=== PATIENT | male | born 1950 | race Caucasian/White ===

== ENCOUNTER 2024-04-09 14:36 | Emergency (ER) | payer MEDICARE ==
[2024-04-09 15:22] VITALS: RESP 16
[2024-04-09 17:08] LABS: RBC,Urine >182 /hpf (0-5); WBC,Urine >182 /hpf (0-5)
[2024-04-09 17:09] LABS: Appearance,Urine Bloody (Clear)
--- NOTE | 2024-04-09 17:24 | ED ---
Male Urogenital HPI - General Chief complaint: Urogenital Stated complaint: Hematuria Time Seen by Provider: 04/09/24 14:38 Source: patient, EMS Mode of arrival: EMS - History of Present Illness Initial comments: 73-year-old male presents to the emergency department from [facility] home. They report that the patient has a catheter which was replaced yesterday. The patient takes Brilinta. Today the patient began having bright red blood in his Chen bag and therefore he was sent to the hospital for evaluation. There was no reported significant trauma when the catheter was placed. Patient does have a neurogenic bladder and therefore catheter has been present for at least several months. Patient cannot provide any history. He denies being on any antibiotics. No fever. Denies any suprapubic pain or bodyaches. HPI is limited because of the patient's low literacy level - Related Data Previous Rx's Medication Instructions Recorded Cephalexin [Keflex] 500 mg PO Q6HR #28 cap 04/09/24 Allergies Allergy/AdvReac Type Severity Reaction Status Date / Time No Known Allergies Allergy Verified 04/09/24 14:42 Review of Systems ROS Statement: Those systems with pertinent positive or pertinent negative responses have been documented in the HPI. ROS Other: All systems not noted in ROS Statement are negative. Past Medical History Past Medical History: Myocardial Infarction ([place]) Past Surgical History: Appendectomy, Heart Catheterization With Stent Past Psychological History: Depression Smoking Status: Former smoker Past Alcohol Use History: Rare General Exam General appearance: alert, in no apparent distress Head exam: Present: atraumatic, normocephalic, normal inspection Eye exam: Present: normal appearance, PERRL, EOMI. Absent: scleral icterus, conjunctival injection, periorbital swelling ENT exam: Present: normal exam, mucous membranes moist Neck exam: Present: normal inspection. Absent: tenderness, meningismus, lymphadenopathy Respiratory exam: Present: normal lung sounds bilaterally. Absent: respiratory distress, wheezes, rales, rhonchi, stridor Cardiovascular Exam: Present: regular rate, normal rhythm, normal heart sounds. Absent: systolic murmur, diastolic murmur, rubs, gallop, clicks GI/Abdominal exam: Present: soft, normal bowel sounds. Absent: distended, tenderness, guarding, rebound, rigid Extremities exam: Present: normal inspection, full ROM, normal capillary refill. Absent: tenderness, pedal edema, joint swelling, calf tenderness Back exam: Present: normal inspection Neurological exam: Present: alert, oriented X3, CN II-XII intact Psychiatric exam: Present: normal affect, normal mood Skin exam: Present: warm, dry, intact, normal color. Absent: rash Course Vital Signs 04/09/24 04/09/24 14:43 18:35 Temperature 97.5 F L 98.0 F Pulse Rate 66 69 Respiratory 16 16 Rate Blood Pressure 114/57 128/44 O2 Sat by Pulse 97 97 Oximetry Medical Decision Making - Medical Decision Making Was pt. sent in by a medical professional or institution (, NAILA, STEAM TABLE ATTENDANT, urgent care, hospital, or prison...) When possible be specific @ -Patient was sent in from his [facility] home Did you speak to anyone other than the patient for history (EMS, parent, family, police, friend...)? What history was obtained from this source @ -Spoke with EMS for history Did you review nursing and triage notes (agree or disagree)? Why? @ -I reviewed and agree with nursing and triage notes Were old charts reviewed (outside hosp., previous admission, EMS record, old EKG, old radiological studies, urgent care reports/EKG's, prison records)? Report findings @ -I reviewed paperwork that came with the patient when he was at [facility] Differential Diagnosis (chest pain, altered mental status, abdominal pain women, abdominal pain men, vaginal bleeding, weakness, fever, dyspnea, syncope, h eadache, dizziness, GI bleed, back pain, seizure, CVA, palpatations, mental health, musculoskeletal)? @ -UTI, bladder cancer, bladder polyp, bladder stones EKG interpreted by me (3pts min.). @ -Not done X-rays interpreted by me (1pt min.). @ -None done CT interpreted by me (1pt min.). @ -None done U/S interpreted by me (1pt. min.). @ -None done What testing was considered but not performed or refused? (CT, X-rays, U/S, labs)? Why? @ -None What meds were considered but not given or refused? Why? @ -None Did you discuss the management of the patient with other professionals (professionals i.e. , NAIAL, STEAM TABLE ATTENDANT, lab, RT, psych nurse, manager social services, wheelabrator operator, teacher, mounted police officer, family independence case manager)? Give summary @ -No Was smoking cessation discussed for >3mins.? @ -No Was critical care preformed (if so, how long)? @ -No Were there social determinants of health that impacted care today? How? (Homelessness, low income, unemployed, alcoholism, drug addiction, transportation, low edu. Level, literacy, decrease access to med. care, snf, rehab)? @Patient resides in an [facility] home Was there de-escalation of care discussed even if they declined (Discuss DNR or withdrawal of care, Hospice)? DNR status @ -No What co-morbidities impacted this encounter? (DM, HTN, Smoking, COPD, CAD, Cancer, CVA, ARF, Chemo, Hep., AIDS, mental health diagnosis, sleep apnea, morbid obesity)? @ -Neurogenic bladder Was patient admitted / discharged? Hospital course, mention meds given and route, prescriptions, significant lab abnormalities, going to OR and other pertinent info. @ -Upon arrival patient seen and evaluated in room 1. Thorough history and physical exam was performed. We did change out the whole catheter. Urine sample is sent which does demonstrate leukocyte esterase and a lot of blood. Patient will be placed on an antibiotic to see if this alleviates his symptoms. We were able to flush the catheter to where there was no concern for any large blood clots. Patient needs to follow-up with the urologist for his catheter and return for any new or worsening symptoms. Patient agreeable to the plan he was discharged in stable condition Undiagnosed new problem with uncertain prognosis? @ -No Drug Therapy requiring intensive monitoring for toxicity (Heparin, Nitro, Insulin, Cardizem)? @ -No Were any procedures done? @ -Chen replacement Diagnosis/symptom? @ -Acute hematuria, acute UTI Acute, or Chronic, or Acute on Chronic? @ -Acute Uncomplicated (without systemic symptoms) or Complicated (systemic symptoms)? @ -Complicated Side effects of treatment? @ -Allergic reaction Exacerbation, Progression, or Severe Exacerbation? @ -No Poses a threat to life or bodily function? How? (Chest pain, [place], [place], pneumonia, PE, COPD, DKA, ARF, appy, cholecystitis, CVA, Diverticulitis, Homicidal, Suicidal, threat to staff... and all critical care pts) @ -No - Lab Data Lab Results 05/29/24 Range/Units 16:43 Urine Appearance Bloody (Clear) Urine RBC >182 H (0-5) /hpf Urine WBC >182 H (0-5) /hpf Urine WBC Clumps Many H (None) /hpf Disposition Clinical Impression: Hematuria, UTI (urinary tract infection) Disposition: HOME SELF-CARE Condition: Stable Instructions (If sedation given, give patient instructions): Urinary Tract Infection in Men (ED) Additional Instructions: Please take the antibiotics as directed. Follow-up with Dr. Cuba and return for any new or worsening symptoms Prescriptions: Cephalexin [Keflex] 500 mg PO Q6HR #28 cap Is patient prescribed a controlled substance at d/c from ED?: No Referrals: BEN CUBA MD [Primary Care Provider] - 1-2 days Elliott Cuba MD [STAFF PHYSICIAN] - 1-2 days Time of Disposition: 17:24
[2024-04-09] MEDS: cefTRIAXone IN SWFI 1,000 MG/10 ML SYRINGE IVP STA (18:17)
[2024-04-09] MEDS: CEPHALEXIN 500 MG CAP PO STA (18:34)
[2024-04-09 18:37] VITALS: BP 128/44; PULSE 69; TEMP 98
== END 2024-04-09 18:54 | disposition home or self-care (01) ==
LOC: EC 14:36
DX: N39.0 Urinary tract infection, site not specified (principal); Z87.891 Personal history of nicotine dependence
CPT/HCPCS: 51702; 81001; 87086; 99284

== ENCOUNTER 2024-06-19 06:42 | Emergency (ER) | payer MEDICARE, OTHER ==
[2024-06-19] MEDS ORDERED: SODIUM CHLORIDE 0.9% 1,000 ML BAG ONE (07:06)
--- NOTE | 2024-07-10 12:53 | CT ---
EXAM: CT abdomen pelvis with contrast. DATE OF EXAM: 06/19/24 Reason for study: Left lower quadrant pain, with contrast, ISOVIEW 300, 100 ml, DLP 853.3 COMPARISON: None, please note PACS downtime occurred during the radiologist interpretation of these i mages with limited priors/reports.. TECHNIQUE: CT Abdomen and pelvis with Contrast, with axial imaging and sagittal and coronal reformats following the administration of ISOVIEW 300, 100 ml IV contrast material.. One or more CT dose reduction strate gies were utilized during this examination. Total DLP administered was 853.3 mGycm. FINDINGS: LOWER CHEST: Unremarkable ABDOMEN LIVER: Unremarkable GALLBLADDER AND BILE DUCTS: Unremarkable. PANCREAS: Unremarkable. SPLEEN: Unremarkable. ADRENAL GLANDS: Unremarkable. KIDNEYS AND URETERS: Nonobstructing right 5 mm renal calculus. No left renal calculi. No obstructive uropathy. PELVIS BLADDER: Unremarkable REPRODUCTIVE: Prostate is enlarged in size measuring 5.2 cm in transverse dimension. ABDOMEN & PELVIS STOMACH AND BOWEL: There is mild inflammation around the sigmoid colon with multiple diverticula and some mild wall thickening. Stomach and duodenum are unremarkable. No evidence of bowel obstruction. PERITONEUM: No evidence of pneumoperitoneum or free fluid. VASCULATURE: No evidence of aortic aneurysm. MUSCULOSKELETAL: No acute osseous abnormalities LYMPH NODES: No gross evidence for lymphadenopathy. SOFT TISSUE/ABDOMINAL WALL: Fat-containing right inguinal hernia. IMPRESSION: 1. Sigmoid colon mild inflammation changes with diverticula correlate for diverticulitis/colitis. 2. Prostatomegaly correlate with serum PSA. 3. Nonobstructing right renal calculi. 4. Scattered colonic diverticula.
== END 2024-06-19 13:57 | disposition other institution (70) ==
LOC: EC 06:42
DX: K57.32 Diverticulitis of large intestine without perforation or abscess without bleeding (principal)
CPT/HCPCS: 74177; 80053; 81003; 82150; 83605; 83690; 84100; 85025; 96360; 99284

== ENCOUNTER 2024-06-30 10:48 | Emergency (ER) | payer MEDICARE ==
[2024-06-30] MEDS ORDERED: SODIUM CHLORIDE 0.9% 1,000 ML BAG ONE (11:40)
== END 2024-06-30 18:45 | disposition home or self-care (01) ==
LOC: EC 10:48
CPT/HCPCS: 96360; 99284